=== PATIENT | male | born 1995 | race African-American/Black ===

== ENCOUNTER 2019-04-12 11:04 | Emergency (ER) | payer OTHER ==
[~2019-04-12] VITALS: Ht 180.3 cm; Wt 77.1 kg
[2019-04-12 12:25] VITALS: BP 125/79
== END 2019-04-12 12:25 | disposition home or self-care (01) ==
LOC: ER 11:04
DX: J02.0 Streptococcal pharyngitis (principal); F17.210 Nicotine dependence, cigarettes, uncomplicated